=== PATIENT | female | born 1975 | race Caucasian/White ===

== ENCOUNTER 2024-06-16 13:00 | Emergency (ER) | payer MEDICARE, BC, SELFPAY ==
[2024-06-16 13:10] VITALS: BP 124/74; PULSE 94; RESP 16; TEMP 36.5; O2SAT 100
--- NOTE | 2024-06-16 13:42 | ED.URI ---
HPI - URI/Sore Throat General Chief Complaint: Upper Respiratory Infection Stated Complaint: Sore Throat/Ears Time Seen by Provider: 06/16/24 13:42 Source: patient Mode of arrival: ambulatory Limitations: no limitations History of Present Illness HPI Narrative: 49-year-old female presents with complaint of nasal congestion, sore throat, mild cough, fatigue, headache, body aches for 5 days. No chest pain or shortness of breath. Taking [id number] [place] with little relief. Sore throat pain worse today. All systems reviewed and negative except as noted above. Related Data Home Medications Medication Instructions Recorded Confirmed baclofen 20 mg tablet 20 mg PO TID 06/16/24 06/16/24 ergocalciferol (vitamin D2) 1,250 50,000 unit PO DAILY 06/16/24 06/16/24 mcg (50,000 unit) capsule hydrocodone 7.5 mg-acetaminophen 1 tablet PO TID 06/16/24 06/16/24 325 mg tablet phentermine 15 mg capsule 15 mg PO DAILY 06/16/24 06/16/24 ropinirole 0.5 mg tablet 0.5 mg PO HS 06/16/24 06/16/24 Allergies Allergy/AdvReac Type Severity Reaction Status Date / Time No Known Allergies Allergy Unverified 10/28/16 08:28 Review of Systems Review of Systems: CONSTITUTIONAL: Denies fever, chills, or sweats. reports fatigue. EYES: Denies visual changes, redness, or discharge. ENT: Reports rhinorrhea, congestion, sore throat. Denies otalgia. CARDIOVASCULAR: Denies chest pain, palpitations, or edema. RESPIRATORY: Denies cough or dyspnea. GASTROINTESTINAL: Denies abdominal pain, nausea, vomiting, or diarrhea. GENITOURINARY: Denies dysuria or hematuria. SKIN: Denies rash or itching. MUSCULOSKELETAL: Denies back pain, joint pain, or myalgia. NEUROLOGIC: Denies headache, numbness, or weakness. PSYCHIATRIC: Denies anxiety or depression. All other systems reviewed are negative, except as documented in HPI. PMFSH Comments At time of signature, agree with nursing past medical, surgical, social and family history. There is no relevant family history pertinent to the presenting complaint. Exam Narrative: GENERAL: This is a well-nourished, well-developed patient, ill-appearing but in no acute distress HEAD: normocephalic, atraumatic. EYES: PERRL. Sclera clear/white. Vision is grossly intact. EARS: External ears normal, auditory canals clear and without drainage, TMs normal without perforation. Hearing grossly intact. NOSE: External nose normal with Clear nasal drainage, mild congestion, erythema to bilateral nares THROAT: Mucous membranes moist, mild erythema without significant swelling or exudates NECK: Neck supple, non-tender without lymphadenopathy, masses or thyromegaly. CARDIOVASCULAR: Regular rate and rhythm without murmurs, gallops, or rubs. RESPIRATORY: Clear to auscultation. Breath sounds equal bilaterally. No wheezes, rales, or rhonchi. SKIN: warm, Dry, intact with no suspicious lesions or rash, good texture and turgor. NEURO: awake, alert, and oriented to person, place and time. There were no obvious focal neurologic abnormalities. EXTREMITIES: No joint tenderness, effusion, or edema noted. Course Course Level of Care: Express Care Visit Vital Signs Vital signs: Vital Signs Temperature 36.5 C 06/16/24 13:10 Pulse Rate 94 06/16/24 13:10 Respiratory Rate 16 06/16/24 13:10 Blood Pressure 124/74 06/16/24 13:10 Pulse Oximetry 100 06/16/24 13:10 Oxygen Delivery Room Air 06/16/24 13:10 Temperature 36.5 C 06/16/24 13:10 Pulse Rate 94 06/16/24 13:10 Respiratory Rate 16 06/16/24 13:10 Blood Pressure 124/74 06/16/24 13:10 Pulse Oximetry 100 06/16/24 13:10 Oxygen Delivery Room Air 06/16/24 13:10 reviewed MDM - URI/Sore Throat MDM Narrative Medical decision making narrative: Patient is aware of diagnosis, understands and agrees to treatment plan. Anticipatory guidance given. Patient agrees to follow-up as directed and is aware of reasons to seek care at
[2024-06-16 14:02] LABS: EDSTREPNEGPOS1 Negative (Negative)
[2024-06-16 14:11] LABS: EDCOVIDSCREEN Positive (Negative)
[2024-06-16 14:12] LABS: EDINFLUASCREEN Negative (Negative); EDINFLUBSCREEN Negative (Negative)
== END 2024-06-16 14:15 | disposition home or self-care (01) ==
PROVIDERS: Emergency Provider Nurse Practitioner Family
DX: U07.1 COVID-19 (principal); G62.9 Polyneuropathy, unspecified
CPT/HCPCS: 87081; 87426; 87804; 87880; 99213; G0463